=== PATIENT | male | born 1945 | race Hispanic/Latino ===

== ENCOUNTER → 2023-11-29 07:17 | Outpatient (REF) | payer BC, SELFPAY ==
[2023-11-29 10:04] LABS: ALT (SGPT) 21 U/L (0-50); AST (SGOT) 27 U/L (17-59); Albumin 3.8 g/dl (3.5-5.0); Alkaline Phosphatase 92 U/L (38-126); Blood Urea Nitrogen 24 mg/dl (9-20); Calcium 9.7 mg/dl (8.4-10.2); Carbon Dioxide 29 mmol/L (22-30); Chloride 102 mmol/L (98-107); Glucose 157 mg/dl (70-99); HDL Cholesterol 53 mg/dl; LDL Cholesterol, Calculated 109 mg/dl; Potassium 4.7 mmol/L (3.5-5.1); Sodium 135 mmol/L (135-145); Total Bilirubin 0.6 mg/dl (0.2-1.3); Total Cholesterol 219 mg/dl (50-199); Total Protein 6.5 g/dl (6.3-8.2); Triglyceride 287 mg/dl (10-149); Very Low Density Lipoprotein 57 mg/dl (0-30); eGFR > 60.00
[2023-11-29 14:20] LABS: Microalbumin, Random Urine < 0.6 mg/dl (0.6-1.7)
== END ==
LOC: REG 07:17
PROVIDERS: ATTENDING PHYSICIAN Family Medicine
DX: E11.42 Type 2 diabetes mellitus with diabetic polyneuropathy (principal); E78.5 Hyperlipidemia, unspecified
CPT/HCPCS: 36415; 80053; 80061; 82043; 83036

== ENCOUNTER → 2023-11-29 09:26 | Outpatient (REF) | payer BC, SELFPAY ==
[2023-11-29 11:30] LABS: PSA, Total - Diagnostic 0.94 ng/ml (0.0-4.0)
== END ==
LOC: REG 09:26
PROVIDERS: ATTENDING PHYSICIAN Specialist; FAMILY PHYSICIAN Family Medicine
DX: C61 Malignant neoplasm of prostate (principal)
CPT/HCPCS: 36415; 84153

== ENCOUNTER → 2024-05-15 10:37 | Outpatient (REF) | payer BC, SELFPAY ==
[2024-05-15 11:40] LABS: Urine Albumin Negative (Neg - Trace); Urine Bilirubin Negative (Negative); Urine Character Clear (Clear); Urine Color Yellow; Urine Glucose 3+ (Negative); Urine Ketone 1+ (Negative); Urine Leukocyte Negative (Negative); Urine Nitrite Negative (Negative); Urine Occult Blood Negative (Negative); Urine Urobilinogen Negative (Neg - 1+)
[2024-05-15 12:06] LABS: Glycohemoglobin (HgbA1c) 6.6 % (4.0-5.6)
[2024-05-15 12:55] LABS: % Basophils 0.5 % (0-2); % Eosinophils 0.3 % (0-6); % Immature Granulocytes 0.5 % (0-0.5); % Lymphocytes 19.8 % (20.5-51.1); % Monocytes 6.7 % (1.7-9.3); % Neutrophils 72.2 % (42.2-75.2); Absolute Lymphocytes 1.3 10^3/uL (1.2-3.4); Absolute Monocytes 0.4 10^3/uL (0.1-0.6); Absolute Neutrophils 4.6 10^3/uL (1.4-6.5); Hematocrit 47.7 % (39.0-52.0); Hemoglobin 15.4 g/dL (13.0-18.0); Mean Corp Hgb Conc. 32.3 g/dL (33.0-37.0); Mean Corpuscular Hgb 29.4 pg (27.0-31.0); Mean Corpuscular Volume 91.2 fL (80.0-94.0); Mean Platelet Volume 11.3 fL (7.4-10.4); Nucleated Red Blood Cells % 0 % (-); Platelet Count 208 10^3/uL (130-400); Red Blood Cell Count 5.23 10^6/uL (4.70-6.10); Red Cell Dist. Width 14.5 % (11.5-14.5); White Blood Cell Count 6.4 10^3/uL (4.8-10.8)
[2024-05-15 13:08] LABS: ALT (SGPT) 16 U/L (0-50); AST (SGOT) 23 U/L (17-59); Albumin 4.2 g/dl (3.5-5.0); Alkaline Phosphatase 78 U/L (38-126); Blood Urea Nitrogen 22 mg/dl (9-20); Calcium 9.4 mg/dl (8.4-10.2); Carbon Dioxide 29 mmol/L (22-30); Chloride 98 mmol/L (98-107); Glucose 113 mg/dl (70-99); HDL Cholesterol 62 mg/dl; LDL Cholesterol, Calculated 163 mg/dl; Potassium 4.4 mmol/L (3.5-5.1); Sodium 136 mmol/L (135-145); Total Bilirubin 0.9 mg/dl (0.2-1.3); Total Cholesterol 250 mg/dl (50-199); Total Protein 7.2 g/dl (6.3-8.2); Triglyceride 126 mg/dl (10-149); Very Low Density Lipoprotein 25 mg/dl (0-30); eGFR > 60.00
[2024-05-15 13:31] LABS: Microalbumin, Random Urine 0.8 mg/dl (0.6-1.7); Microalbumin/creatinine Ratio 8.3 mg/g
[2024-05-15 13:39] LABS: PSA, Total - Diagnostic 4.26 ng/ml (0.0-4.0)
== END ==
LOC: REG 10:37
PROVIDERS: ATTENDING PHYSICIAN Specialist; FAMILY PHYSICIAN Family Medicine
DX: C61 Malignant neoplasm of prostate (principal); E11.42 Type 2 diabetes mellitus with diabetic polyneuropathy; E78.5 Hyperlipidemia, unspecified
CPT/HCPCS: 36415; 80053; 80061; 81003; 82043; 82570; 83036; 84153; 85025

== ENCOUNTER → 2024-12-14 06:42 | Outpatient (REF) | payer BC, SELFPAY ==
[2024-12-14 08:42] LABS: PSA, Total - Diagnostic 8.18 ng/ml (0.0-4.0)
== END ==
LOC: REG 06:42
PROVIDERS: ATTENDING PHYSICIAN Specialist; FAMILY PHYSICIAN Family Medicine
DX: C61 Malignant neoplasm of prostate (principal)
CPT/HCPCS: 36415; 84153

== ENCOUNTER → 2024-12-15 09:54 | Outpatient (REF) | payer BC, SELFPAY ==
[2024-12-15 11:28] LABS: ALT (SGPT) 15 U/L (0-50); AST (SGOT) 19 U/L (17-59); HDL Cholesterol 52 mg/dl; LDL Cholesterol, Calculated 178 mg/dl; Very Low Density Lipoprotein 26 mg/dl (0-30)
== END ==
LOC: REG 09:54
PROVIDERS: ATTENDING PHYSICIAN Internal Medicine Cardiovascular Disease; FAMILY PHYSICIAN Family Medicine
DX: E78.5 Hyperlipidemia, unspecified (principal)
CPT/HCPCS: 36415; 80061; 84450; 84460

== ENCOUNTER → 2025-03-13 07:36 | Outpatient (REF) | payer BC, SELFPAY ==
[2025-03-13 08:42] LABS: Hematocrit 49.4 % (39.0-52.0); Hemoglobin 15.9 g/dL (13.0-18.0); Mean Corp Hgb Conc. 32.2 g/dL (33.0-37.0); Mean Corpuscular Volume 92.5 fL (80.0-94.0); Nucleated Red Blood Cells % 0 % (-); Platelet Count 200 10^3/uL (130-400); Red Cell Dist. Width 14.5 % (11.5-14.5)
[2025-03-13 08:55] LABS: Urine Character Clear (Clear)
[2025-03-13 08:59] LABS: ALT (SGPT) 19 U/L (0-50); AST (SGOT) 20 U/L (17-59); Albumin 3.9 g/dl (3.5-5.0); Alkaline Phosphatase 64 U/L (38-126); Blood Urea Nitrogen 19 mg/dl (9-20); Calcium 9.2 mg/dl (8.4-10.2); Carbon Dioxide 31 mmol/L (22-30); Chloride 102 mmol/L (98-107); Glucose 134 mg/dl (70-99); HDL Cholesterol 49 mg/dl; LDL Cholesterol, Calculated 142 mg/dl; Potassium 4.4 mmol/L (3.5-5.1); Sodium 134 mmol/L (135-145); Total Protein 6.9 g/dl (6.3-8.2); Very Low Density Lipoprotein 29 mg/dl (0-30); eGFR > 60.00
[2025-03-13 09:30] LABS: Microalb - Urine Creatinine 70.200 mg/dl
[2025-03-13 09:33] LABS: Microalbumin, Random Urine 0.8 mg/dl (0.6-1.7)
[2025-03-13 10:25] LABS: Glycohemoglobin (HgbA1c) 6.9 % (4.0-5.9)
[2025-03-13 11:05] LABS: PSA, Total - Screen 9.34 ng/ml (0.0-4.0); TSH 7.23 uIU/ml (0.47-4.68)
== END ==
LOC: REG 07:36
PROVIDERS: ATTENDING PHYSICIAN Family Medicine
DX: Z00.00 Encounter for general adult medical examination without abnormal findings (principal); E11.42 Type 2 diabetes mellitus with diabetic polyneuropathy; E78.5 Hyperlipidemia, unspecified; C61 Malignant neoplasm of prostate; E11.65 Type 2 diabetes mellitus with hyperglycemia
CPT/HCPCS: 36415; 80053; 80061; 81003; 82043; 82570; 83036; 84443; 85025; G0103